=== PATIENT | male | born 1985 | race Caucasian/White ===

== ENCOUNTER 2020-10-22 17:56 | Emergency (ER) | payer OTHER ==
[2020-10-22] MEDS ORDERED: MORPHINE SULFATE 4 MG INJ IV ONE (18:13)
[2020-10-22] MEDS ORDERED: BABY ASPIRIN 81 MG CHEW PO ONE (18:13)
[2020-10-22] MEDS ORDERED: Zofran 4 MG/2 ML VIAL IV ONE (18:13)
[2020-10-22] MEDS ORDERED: MORPHINE SULFATE 4 MG INJ ONE (18:16)
[2020-10-22] MEDS ORDERED: BABY ASPIRIN 81 MG CHEW ONE (18:16)
[2020-10-22] MEDS ORDERED: Zofran 4 MG/2 ML VIAL ONE (18:16)
[2020-10-22 18:29] LABS: Absolute Neutrophil Ct (ANC) 5.13 (1.4-6.9); BASOPHIL % 0.3 % (0.0-0.4); Basophil (Absolute #) 0.02 (0-0.4); Eosinophil % 2.8 % (0.00-5.0); Eosinophil (Absolute #) 0.22 (0-0.5); Mean Cell Volume 84.4 fl (78-100); Mean Corpuscular Hemoglobin 28.1 pg (26-32); Mean Corpuscular Hgb Concent. 33.3 g/dl (32-36); Mean Platelet Volume 10.8 fl (7.5-11.0); Monocyte (Absolute #) 0.65 (0.0-1.3); Monocytes % 8.3 % (0.0-12.0); Neutrophil % 65.6 % (36.0-66.0); Platelet Count 196 K/mm3 (150-450); Red Blood Count 5.33 M/mm3 (4.1-5.6); Red Cell Distribution Width 13.9 % (11.5-14.0); White Blood Count 7.8 K/mm3 (4.0-10.5)
[2020-10-22 18:48] LABS: ALBUMIN 4.9 g/dL (3.5-5.0); ALKALINE PHOSPHATASE 68 U/L (38-126); BLOOD UREA NITROGEN 9 mg/dL (9-20); CHLORIDE 100 mmol/L (98-107); CK-Creatinine Phosphokinase 75 U/L (55-170); Calcium 9.6 mg/dL (8.4-10.2); Carbon Dioxide 27 mmol/L (22-30); Creatinine 1 1.09 mg/dL (0.66-1.25); EST GLOMERULAR FILTRATION RATE > 60.0 ML/MIN; Glucose 136 mg/dL (74-106); NT PRO BNP 147 pg/mL (0-450); Potassium 3.3 mmol/L (3.5-5.1); SGOT/AST 29 U/L (17-59); SGPT/ALT 31 U/L (0-50); SODIUM 140 mmol/L (137-145); Total Protein 7.8 g/dL (6.3-8.2)
[2020-10-22] MEDS ORDERED: Sodium Chloride 0.9% 1000 ML 1,000 ML IV STA (19:07)
--- NOTE | 2020-10-22 19:10 | XRAY ---
Indication: Chest pain and left arm numbness. Comparison: August 23, 2017. PA/lateral chest again demonstrates normal heart and lungs. Bony thorax intact. No new/acute findings.
[2020-10-22] MEDS ORDERED: Sodium Chloride 0.9% 1000 ML 1,000 ML ONE (19:23)
--- NOTE | 2020-10-22 19:44 | ERPHSYRPT ---
- History of Present Illness Time Seen by Provider: 10/22/20 18:05 Historian: patient Exam Limitations: no limitations Patient Subjective Stated Complaint: Pt was eating dinner when he suddenly began having chest pain, right arm numb Triage Nursing Assessment: Pt brought self to the ER, vitals wnl, rates pain 12/13, no edema, denies N&V, skin n/w/d, pain in right chest that radiates to the right shoulder and goes down his right arm causing it to be numb Physician History: 35 years old healthy male presented in the ER with chief complaint of right- sided chest pain sudden onset almost half an hour prior to arrival while he was eating in a restaurant. Described this as a dull aching sharp pain radiating to left shoulder and arm, aggravated with movements in a certain position and denies any associated shortness of breath or palpitations. He also report having mild to moderate generalized headache without any focal numbness tingling or weakness. Denies any history of chest pain in the past. 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 Denies any associated nausea vomiting or abdominal pain. No fever chills or sick contact reported. Timing/Duration: hour(s) (0.5), constant, sudden Activities at Onset: other (Eating) Quality: sharpness Location: other (Right chest) Chest Pain Radiation: arm (Right arm) Severity of Pain-Max: moderate Severity of Pain-Current: moderate Modifying Factors: Worsens With: change in position Associated Symptoms: headache, No vomiting, No palpitations, No heartburn, No shortness of breath, No cough, No hurts to breathe, No diaphoresis, No fatigue, No weakness, No swelling/lump in chest, No dizziness, No edema, No back pain Prior Chest Pain/Cardiac Workup: no prior chest pain, no prior cardiac workup Nitro Today/Relief: no nitro taken today Aspirin Treatment Today: no aspirin today Allergies/Adverse Reactions: amoxicillin Allergy (Verified 10/22/20 18:13) Penicillins Allergy (Verified 10/22/20 18:13) Home Medications: No Reportable Medications [No Reported Medications] 10/22/20 [History] Travel Risk - International Travel Have you traveled outside of the country in past 3 weeks: No - Coronavirus Screening Are you exhibiting any of the following symptoms?: No Close contact with a COVID-19 positive Pt in past 14-21 Days: No - Vaccine Status Have you recieved a Covid-19 vaccination: No - Review of Systems Constitutional: No Symptoms Eyes: No Symptoms Ears, Nose, & Throat: No Symptoms Respiratory: No Symptoms Cardiac: Chest Pain Abdominal/Gastrointestinal: No Symptoms Genitourinary Symptoms: No Symptoms Musculoskeletal: No Symptoms Skin: No Symptoms Neurological: Headache Psychological: No Symptoms Endocrine: No Symptoms Hematologic/Lymphatic: No Symptoms Immunological/Allergic: No Symptoms - Past Medical History Pertinent Past Medical History: Yes Neurological History: No Pertinent History ENT History: No Pertinent History Cardiac History: No Pertinent History Respiratory History: No Pertinent History Endocrine Medical History: No Pertinent History Musculoskeletal History: Fractures GI Medical History: Other History: No Pertinent History Psycho-Social History: No Pertinent History Male Reproductive Disorders: No Pertinent History Other Medical History: R WRIST FX - Past Surgical History Past Surgical History: Yes Neuro Surgical History: No Pertinent History Cardiac: No Pertinent History Respiratory: No Pertinent History Gastrointestinal: Other Genitourinary: No Pertinent History Musculoskeletal: No Pertinent History Male Surgical History: No Pertinent History - Social History Smoking Status: Never smoker Exposure to second hand smoke: No Drug Use: none Patient Lives Alone: No - Nursing Vital Signs Nursing Vital Signs: Initial Vital Signs Temperature 98.9 F 10/22/20 18:03 Pulse Rate 75 10/22/20 18:03 Respiratory Rate 28 H 10/22/20 18:03 Blood Pressure 138/90 10/22/20 18:03 O2 Sat by Pulse Oximetry 99 10/22/20 18:03 Pain Scale Pain Intensity 0 - Physical Exam General Appearance: no apparent distress, alert, anxiety Eye Exam: PERRL/EOMI, eyes nml inspection Ears, Nose, Throat Exam: normal ENT inspection, TMs normal, pharynx normal Neck Exam: normal inspection, non-tender, supple, full range of motion Respiratory Exam: normal breath sounds, lungs clear Cardiovascular Exam: regular rate/rhythm, normal heart sounds Gastrointestinal/Abdomen Exam: soft, normal bowel sounds, No tenderness Back Exam: normal inspection, normal range of motion, No CVA tenderness Extremity Exam: normal inspection, normal range of motion Neurologic Exam: alert, oriented x 3, cooperative, 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 as tested, normal mood/affect, nml cerebellar function, nml station & gait, sensation nml, No motor deficits, No sensory deficit Skin Exam: normal color SpO2 Interpretation: normal SpO2: 98 O2 Delivery: Room Air - Course EKG Interpreted by Me: RATE ([id number]), Sinus Rhythm, NORMAL AXIS, NORMAL INTERVALS, Other (PVC, left atrial enlargement.) Ordered Tests: Active Orders 24 hr Category Date Time Status Business Intelligence Consultant STAT Care 10/22/20 18:14 Completed EKG-ER Only STAT Care 10/22/20 18:13 Completed IV Insertion STAT Care 10/22/20 18:13 Completed CHEST 2 VIEWS (PA AND LAT) Stat Exams 10/22/20 18:14 Completed CBC W DIFF Stat Lab 10/22/20 18:25 Completed CK-Creatinine Phosphokinase Stat Lab 10/22/20 18:25 Completed CMP Stat Lab 10/22/20 18:25 Completed D-DIMER QUANTITATIVE Stat Lab 10/22/20 18:25 Completed NT PRO BNP Stat Lab 10/22/20 18:25 Completed TROPONIN Q3H Lab 10/22/20 18:25 Completed TROPONIN Q3H Lab 10/22/20 20:50 Completed Urine Triage Profile Stat Lab 10/22/20 19:33 Completed Medication Summary Discontinued Medications Generic Name Dose Route Start Last Admin Trade Name Freq PRN Reason Stop Dose Admin Aspirin 324 mg 10/22/20 18:13 10/22/20 18:18 Baby Aspirin 81 Mg Chew PO 10/22/20 18:14 324 mg STAT ONE Administration Aspirin Confirm 10/22/20 18:16 Baby Aspirin 81 Mg Chew Administered 10/22/20 18:17 Dose 324 mg .ROUTE .STK-MED ONE Sodium Chloride 1,000 mls @ 999 mls/hr 10/22/20 19:07 10/22/20 20:51 Sodium Chloride 0.9% 1000 Ml IV 10/22/20 20:07 Infused .Q1H1M STA Infusion Sodium Chloride Confirm 10/22/20 19:23 Sodium Chloride 0.9% 1000 Ml Administered 10/22/20 19:24 Dose 1,000 mls @ ud .ROUTE .STK-MED ONE Morphine Sulfate 4 mg 10/22/20 18:13 10/22/20 18:18 Morphine Sulfate 4 Mg Inj IV 10/22/20 18:14 4 mg STAT ONE Administration Morphine Sulfate Confirm 10/22/20 18:16 Morphine Sulfate 4 Mg Inj Administered 10/22/20 18:17 Dose 4 mg .ROUTE .STK-MED ONE Ondansetron HCl 4 mg 10/22/20 18:13 10/22/20 18:18 Zofran 4 Mg/2 Ml Vial IV 10/22/20 18:14 4 mg STAT ONE Administration Ondansetron HCl Confirm 10/22/20 18:16 Zofran 4 Mg/2 Ml Vial Administered 10/22/20 18:17 Dose 4 mg .ROUTE .STK-MED ONE Lab/Rad Data: Laboratory Result Diagrams 10/22/20 18:25 10/22/20 18:25 Laboratory Results 10/22/20 10/22/20 10/22/20 Range/Units 20:50 19:33 18:25 WBC (4.0-10.5) K/mm3 RBC (4.1-5.6) M/mm3 Hgb (12.5-18.0) gm/dl Hct (42-50) % MCV (78-100) fl MCH (26-32) pg MCHC (32-36) g/dl RDW (11.5-14.0) % Plt Count (150-450) K/mm3 MPV (7.5-11.0) fl Gran % (36.0-66.0) % Eos # (Auto) (0-0.5) Absolute Lymphs (auto) (1.0-4.6) Absolute Monos (auto) (0.0-1.3) Lymphocytes % (24.0-44.0) % Monocytes % (0.0-12.0) % Eosinophils % (0.00-5.0) % Basophils % (0.0-0.4) % Absolute Granulocytes (1.4-6.9) Basophils # (0-0.4) D-Dimer (215-500) ng/mL Sodium (137-145) mmol/L Potassium (3.5-5.1) mmol/L Chloride (98-107) mmol/L Carbon Dioxide (22-30) mmol/L Anion Gap (5-15) MEQ/L BUN (9-20) mg/dL Creatinine (0.66-1.25) mg/dL Estimated GFR ML/MIN Glucose (74-106) mg/dL Calcium (8.4-10.2) mg/dL Total Bilirubin (0.2-1.3) mg/dL AST (17-59) U/L ALT (0-50) U/L Alkaline Phosphatase (38-126) U/L Creatine Kinase (55-170) U/L Troponin I < 0.012 < 0.012 (0.000-0.034) ng/mL NT-Pro-B Natriuret Pep (0-450) pg/mL Serum Total Protein (6.3-8.2) g/dL Albumin (3.5-5.0) g/dL Urine Opiates Level POSITIVE (NEGATIVE) Ur Methadone NEGATIVE (NEGATIVE) Urine Barbiturates NEGATIVE (NEGATIVE) Ur Phencyclidine (PCP) NEGATIVE (NEGATIVE) Urine Amphetamine NEGATIVE (NEGATIVE) U Benzodiazepine Level NEGATIVE (NEGATIVE) Urine Cocaine NEGATIVE (NEGATIVE) Urine Marijuana (THC) NEGATIVE (NEGATIVE) 10/22/20 10/22/20 10/22/20 Range/Units 18:25 18:25 18:25 WBC 7.8 (4.0-10.5) K/mm3 RBC 5.33 (4.1-5.6) M/mm3 Hgb 15.0 (12.5-18.0) gm/dl Hct 45.0 (42-50) % MCV 84.4 (78-100) fl MCH 28.1 (26-32) pg MCHC 33.3 (32-36) g/dl RDW 13.9 (11.5-14.0) % Plt Count 196 (150-450) K/mm3 MPV 10.8 (7.5-11.0) fl Gran % 65.6 (36.0-66.0) % Eos # (Auto) 0.22 (0-0.5) Absolute Lymphs (auto) 1.80 (1.0-4.6) Absolute Monos (auto) 0.65 (0.0-1.3) Lymphocytes % 23.0 L (24.0-44.0) % Monocytes % 8.3 (0.0-12.0) % Eosinophils % 2.8 (0.00-5.0) % Basophils % 0.3 (0.0-0.4) % Absolute Granulocytes 5.13 (1.4-6.9) Basophils # 0.02 (0-0.4) D-Dimer 228 (215-500) ng/mL Sodium 140 (137-145) mmol/L Potassium 3.3 L (3.5-5.1) mmol/L Chloride 100 (98-107) mmol/L Carbon Dioxide 27 (22-30) mmol/L Anion Gap 16.0 H (5-15) MEQ/L BUN 9 (9-20) mg/dL Creatinine 1.09 (0.66-1.25) mg/dL Estimated GFR > 60.0 ML/MIN Glucose 136 H (74-106) mg/dL Calcium 9.6 (8.4-10.2) mg/dL Total Bilirubin 2.60 H (0.2-1.3) mg/dL AST 29 (17-59) U/L ALT 31 (0-50) U/L Alkaline Phosphatase 68 (38-126) U/L Creatine Kinase 75 (55-170) U/L Troponin I (0.000-0.034) ng/mL NT-Pro-B Natriuret Pep 147 (0-450) pg/mL Serum Total Protein 7.8 (6.3-8.2) g/dL Albumin 4.9 (3.5-5.0) g/dL Urine Opiates Level (NEGATIVE) Ur Methadone (NEGATIVE) Urine Barbiturates (NEGATIVE) Ur Phencyclidine (PCP) (NEGATIVE) Urine Amphetamine (NEGATIVE) U Benzodiazepine Level (NEGATIVE) Urine Cocaine (NEGATIVE) Urine Marijuana (THC) (NEGATIVE) - Progress Progress: improved Air Movement: good Progress Note: 10/22/20 21:41 Rule out acute coronary syndrome, pneumonia, pneumothorax, low suspicion for dissection. Does have some dehydration, given fluid bolus. Given morphine for symptomatic relief, headache and chest pain is completely resolved. Patient remained asymptomatic. EKG normal sinus rhythm with no acute ischemic changes. Low heart score. Recommended outpatient follow-up. Discussed signs symptoms of worsening needing return to ER which he seems understanding. Blood Culture(s) Obtained: No Antibiotics given: No Counseled pt/family regarding: lab results, diagnosis, need for follow-up, rad results - Departure Departure Disposition: Home Clinical Impression: Atypical chest pain, Dehydration Condition: Stable Critical Care Time: No Referrals: JOSE ROBERTS [facility] [Primary Care Provider] - (In 2 days for reevaluation) Instructions: Chest Pain (DC) Additional Instructions: Drink plenty of fluids. Take Tylenol as needed for pain. Follow-up with primary care physician for reevaluation. Return to ER for worsening chest pain palpitations or shortness of breath.
[2020-10-22 20:46] LABS: Amphetamine,Urine NEGATIVE (NEGATIVE); Barbiturate,Urine NEGATIVE (NEGATIVE); Benzodiazepine,Urine NEGATIVE (NEGATIVE); Cocaine,Urine NEGATIVE (NEGATIVE); Methadone,Urine NEGATIVE (NEGATIVE); Opiate,Urine POSITIVE (NEGATIVE); PCP,Urine NEGATIVE (NEGATIVE); THC,Urine NEGATIVE (NEGATIVE)
[2020-10-22 21:49] VITALS: BP 126/82; PULSE 50
[2020-10-22 23:26] VITALS: O2SAT 98
== END 2020-10-22 22:00 | disposition home or self-care (01) ==
LOC: ED 17:56
DX: R07.89 Other chest pain (principal); E86.0 Dehydration
CPT/HCPCS: 36000; 36415; 71046; 80053; 80307; 82550; 83880; 84484; 85025; 85379; 93005; 93041; 96374; 96375; 99284; J2270; J2405; A9270-GY